=== PATIENT | female | born 1995 | race Caucasian/White ===

== ENCOUNTER → 2017-08-20 | Outpatient (CLI) | payer MEDICAID ==
--- NOTE | 2017-08-20 17:01 | Diagnostic Imaging Report ---
INDICATION: . Dating. TECHNIQUE: Multiple real-time grayscale images were obtained over the gravid uterus. COMPARISON: None. FINDINGS: There is a live single intrauterine with a heart rate of 169 beats per minute. The placenta is anterior. No placenta previa. Amniotic fluid amount appears to be adequate. The cervix is 3.0 cm in length and appears to be closed. The ovaries are obscured by the gravid uterus and the bowel gas. The growth parameters are: Biparietal diameter: 16 weeks and 5 days Head circumference: 16 weeks and 4 days Abdominal circumference: 17 weeks and 1 day Femur length: 16 weeks and 2 days These average at: 16 weeks and 5 days. This corresponds with an VINICIO of 01/30/2018. IMPRESSION: Live single intrauterine . Dictated by: Dictated on workstation # [id number]
== END ==
LOC: RAD 14:36
PROVIDERS: ATTEND Family Medicine
DX: Z34.02 Encounter for supervision of normal first pregnancy, second trimester (principal); Z3A.16 16 weeks gestation of pregnancy
CPT/HCPCS: 76805

== ENCOUNTER → 2017-09-27 | Outpatient (CLI) | payer MEDICAID ==
--- NOTE | 2017-09-27 15:35 | Diagnostic Imaging Report ---
INDICATION: Second trimester . TECHNIQUE: Multiple real-time grayscale images were obtained over the gravid uterus. COMPARISON: 08/20/2017. FINDINGS: There is a single living intrauterine in variable presentation. There is a normal volume of amniotic fluid. Placenta is fundal. There is no previa. Four-chamber heart could not be visualized due to positioning. Remainder of the anatomical survey was unremarkable. Cervical length is 3.8 cm. Heart rate is 142 beats per minute. Biometrical measurements are as follows: Biparietal 5.54 cm, age 23 weeks 0 days. Head circumference 20.58 cm, age 22 weeks 5 days. Abdominal circumference 18.94 cm, age 23 weeks 5 days. Femur length 3.21 cm, age 20 weeks 0 days. Sonographic estimate age: 22 weeks 3 days. Sonographic estimated date of delivery: 01/28/2017. Estimated Weight: 481 gm (+/- 70 gm). LMP percentile: 45%. heart rate: 142 beats per minute. number: 1 of 1. IMPRESSION: Single living intrauterine with a sonographically estimated gestational age of 22 weeks 3 days and estimated date of confinement of January 28, 2018. Four-chamber heart was not well visualized due to position. Dictated by: Dictated on workstation # [id number]
== END ==
LOC: RAD 14:46
PROVIDERS: ATTEND Family Medicine
DX: Z34.92 Encounter for supervision of normal pregnancy, unspecified, second trimester (principal); Z3A.22 22 weeks gestation of pregnancy
CPT/HCPCS: 76805

== ENCOUNTER 2018-02-02 05:42 | Inpatient (IN) | payer MEDICAID ==
[~2018-02-02] VITALS: Ht 157.5 cm; Wt 98.0 kg
[2018-02-02] VITALS (49 sets, daily range): BP systolic 97–127; BP diastolic 55–86
[2018-02-02] MEDS ORDERED: D5 LR IV SOLUTION 1,000 ML IV ONE (06:09)
[2018-02-02] MEDS ORDERED: D5 LR IV SOLUTION 1,000 ML IV SCH (06:12)
[2018-02-02 06:14] LABS: BILIRUBIN,URINE NEGATIVE (NEGATIVE); CLARITY,URINE CLEAR; COLOR,URINE YELLOW; GLUCOSE, URINE (UA) NEGATIVE (NEGATIVE); KETONES,URINE NEGATIVE (NEGATIVE); LEUKOCYTE ESTERASE ,URINE 1+ (NEGATIVE); NITRITE,URINE NEGATIVE (NEGATIVE); PH,URINE 7 (5-9); PROTEIN,URINE NEGATIVE (NEGATIVE); UROBILINOGEN,URINE NORMAL (NORMAL)
[2018-02-02] MEDS ORDERED: MINERAL OIL CONCENTRATE 99.9% 15 ML UDC TOP PRN (06:15)
--- OUTSIDE RECORDS SUMMARY | 2018-02-02 06:18 | XMS REPORT ---
Author KIM Alexander [facility] eClinicalWorks Address Unknown Phone Unavailable Care Team Providers Care Water Main Installer Helper Name Role Phone KIM BOLDEN CP Unavailable Allergies No Known Allergies Problems Problem Type Condition Code Onset Dates Condition Status Assessment Encounter for Depo-Provera contraception Z30.42 Active Problem Unspecified contraceptive management V25.9 Active Medications No Known Medications Procedures Procedure Coding System Code Date DEPO PROVERA (150 MG/ML) CPT-4 J1050 Jun 15, 2015 THER/PROPH/DIAG INJ, SC/IM CPT-4 80763 Jun 15, 2015 URINE TEST CPT-4 93352 Jun 15, 2015 Results No Known Results Summary Purpose eClinicalWorks Submission
--- OUTSIDE RECORDS SUMMARY | 2018-02-02 06:18 | XMS REPORT ---
Author Author VICKI HESTER Organization [facility] Address [address] [place] [address] Care Team Providers Care Curtain Cutter Hand Name Role Phone VICKI HESTER Unavailable PROBLEMS Type Condition ICD9-CM Code [id number] Code Onset Dates Condition Status SNOMED Code Problem Unspecified contraceptive management V25.9 Active 447404845 ALLERGIES Substance Reaction Event Type Date Status N.K.D.A. Unknown Non Drug Allergy Sep, Unknown SOCIAL HISTORY No smoking Hx information available PLAN OF CARE Activity Details Follow Up if not improving or reg follow up Reason: VITAL SIGNS Height 61 in 2016-09-21 Weight 199.2 lbs 2016-09-21 Temperature 97.6 degrees Fahrenheit 2016-09-21 Heart Rate 80 bpm 2016-09-21 Respiratory Rate 18 2016-09-21 BMI 37.63 kg/m2 2016-09-21 Blood pressure systolic 118 mmHg 2016-09-21 Blood pressure diastolic 72 mmHg 2016-09-21 MEDICATIONS Medication Instructions Dosage Frequency Start Date End Date Duration Status Promethazine-Codeine 6.25-10 MG/5ML Orally every 6 hrs prn 5 ml as needed Sep, Active PredniSONE 20 mg Orally Once a day 1 tablet 24h Sep, Sep, 05 days Active Doxycycline Hyclate 100 MG Orally every 12 hrs 1 capsule 12h Sep, Sep, 10 days Active RESULTS No Results PROCEDURES Procedure Date Ordered Related Diagnosis Body Site Office Visit, Est Pt., Level 3 Sep 21, 2016 IMMUNIZATIONS No Known Immunizations
--- OUTSIDE RECORDS SUMMARY | 2018-02-02 06:18 | XMS REPORT | Continuity of Care Document ---
Author Author Formerly [facility] Address Unknown Phone Unavailable Allergies There is no data. Medications There is no data. Problems Date Dx Coded Attending Type Code Diagnosis Diagnosed By 10/14/2014 ORI GARDNER APRNIA R 465.9 UPPER RESPIRATORY INFECTION 10/14/2014 MADL ROLL HAULER, VICKI L 465.9 UPPER RESPIRATORY INFECTION 10/14/2014 ANDREI ROLL HAULER, RADHA R 465.9 UPPER RESPIRATORY INFECTION 10/24/2014 MADL ROLL HAULER, VICKI L 388.70 OTALGIA UNSPECIFIED 10/24/2014 MADL ROLL HAULER, VICKI L 786.2 COUGH 10/24/2014 ANDREI ROLL HAULER, RADHA R 388.70 OTALGIA UNSPECIFIED 10/24/2014 ANDREI ROLL HAULER, RADHA R 786.2 COUGH 10/26/2014 MADL ROLL HAULER, VICKI L V25.9 CONTRACEPTION MANAGEMENT 10/26/2014 ANDREI ROLL HAULER, RADHA R V25.9 CONTRACEPTION MANAGEMENT 11/30/2014 MADL ROLL HAULER, VICKI L 461.9 SINUSITIS ACUTE 11/30/2014 ANDREI ROLL HAULER, RADHA R 461.9 SINUSITIS ACUTE 12/03/2014 ANDREI ROLL HAULER, RADHA R 787.01 NAUSEA WITH VOMITING 09/10/2017 MARY SCHWARTZ MD Ot Z34.02 ENCNTR FOR SUPRVSN OF NORMAL FIRST PREG, 09/10/2017 MARY SCHWARTZ MD Ot Z3A.16 16 WEEKS GESTATION OF 10/01/2017 MARY SCHWARTZ MD Ot Z34.92 ENCNTR FOR SUPRVSN OF NORMAL PREG, UNSP, 10/01/2017 MARY SCHWARTZ MD Ot Z3A.22 22 WEEKS GESTATION OF 10/03/2017 MARY SCHWARTZ MD Ot Z34.92 ENCNTR FOR SUPRVSN OF NORMAL PREG, UNSP, 10/03/2017 MARY SCHWARTZ MD Ot Z3A.22 22 WEEKS GESTATION OF 10/12/2017 MARY SCHWARTZ MD, Ot Z34.92 ENCNTR FOR SUPRVSN OF NORMAL PREG, UNSP, 10/12/2017 MARY SCHWARTZ MD, Ot Z3A.22 22 WEEKS GESTATION OF Procedures Code Description [place] [address] TEST, URINE (IN- HOUSE) 12/03/2014 Results Test Result Range TSH - 08/10/17 10:15 TSH 1.81 mIU/L NRG RUBELLA IMMUNE STATUS - 08/10/17 10:15 RUBELLA ANTIBODY (IGG) 1.24 index NRG CULTURE, URINE - 08/10/17 10:15 CULTURE, URINE, ROUTINE SEE NOTE NRG CULTURE, GENITAL - 08/10/17 10:15 CULTURE, GENITAL SEE NOTE NRG CULTURE, VIRAL (HSV W/TYPING) - 08/10/17 10:26 SOURCE: VAGINAL LESION NRG HSV CULTURE: NOT ISOLATED NRG SUREPATH PAP RFX HPV mRNA E6/E7 - 08/10/17 10:26 CLINICAL INFORMATION: NRG LMP: 05/08/2017 NRG PREV. PAP: NONE NRG PREV. BX: NONE NRG SOURCE: Cervix NRG STATEMENT OF ADEQUACY: NRG INTERPRETATION/RESULT: NRG TRANSMITTER SUPERVISOR: NRG CULTURE, URINE - 09/14/17 15:15 CULTURE, URINE, ROUTINE SEE NOTE NRG CBC - 11/16/17 15:26 WHITE BLOOD CELL COUNT 9.3 Thousand/uL 3.8-10.8 RED BLOOD CELL COUNT 3.82 Million/uL 3.80-5.10 HEMOGLOBIN 10.0 g/dL 11.7-15.5 HEMATOCRIT 31.3 % 35.0-45.0 MCV 81.9 fL 80.0-100.0 MCH 26.2 pg 27.0-33.0 MCHC 31.9 g/dL 32.0-36.0 RDW 14.0 % 11.0-15.0 PLATELET COUNT 334 Thousand/uL 140-400 MPV 9.6 fL 7.5-12.5 ABSOLUTE NEUTROPHILS 7180 cells/uL 4479-3916 ABSOLUTE LYMPHOCYTES 1330 cells/uL 850-3900 ABSOLUTE MONOCYTES 698 cells/uL 200-950 ABSOLUTE EOSINOPHILS 74 cells/uL 15-500 ABSOLUTE BASOPHILS 19 cells/uL 0-200 NEUTROPHILS 77.2 % NRG LYMPHOCYTES 14.3 % NRG MONOCYTES 7.5 % NRG EOSINOPHILS 0.8 % NRG BASOPHILS 0.2 % NRG CULTURE, GROUP B STREP (VAGINAL) - 01/03/18 16:23 STREPTOCOCCUS, GROUP B CULTURE SEE NOTE NRG Encounters ACCT No. Visit Date/Time Discharge Status Pt. Type Provider Facility Loc./Unit Complaint [id number] 12/03/2014 10:41:00 12/03/2014 23:59:59 CLS Outpatient RADHA FORBES APRN [id number] 11/30/2014 09:04:00 11/30/2014 23:59:59 CLS Outpatient VICKI HESTER APRN [id number] 10/14/2014 15:35:00 10/14/2014 23:59:59 CLS Outpatient MANNY GARDNER APRN [id number] 01/24/2018 16:20:00 01/24/2018 23:59:59 CLS Outpatient VICKI HESTER APRN [facility] [id number] 01/03/2018 16:00:00 Document Registration [id number] 11/16/2017 14:20:00 Document Registration [id number] 09/14/2017 14:20:00 Document Registration [id number] 08/10/2017 09:20:00 Document Registration [id number] 09/27/2017 14:46:00 09/27/2017 23:59:59 CLS Outpatient MARY SCHWARTZ MD [facility] SECOND TRIMESTER [id number] 08/20/2017 14:36:00 08/20/2017 23:59:59 CLS Outpatient MARY SCHWARTZ MD [facility] RAD Z34.00 NORMAL PREGANANCY, FIRST [id number] 02/03/2018 19:00:00 PEN Preadmit DONNA FITZGERALD MD INDUCTION
--- OUTSIDE RECORDS SUMMARY | 2018-02-02 06:18 | XMS REPORT ---
Author Author HUBERT CROOKS [facility] eClinicalWorks Address Unknown Phone Unavailable Care Team Providers Care Button Bradder Name Role Phone HUBERT CROOKS CP Unavailable Allergies, Adverse Reactions, Alerts Substance Reaction Event Type N.K.D.A. Info Not Available Non Drug Allergy Problems Problem Type Condition Code Onset Dates Condition Status Assessment Acute nasopharyngitis J00 Active Assessment Acute bacterial sinusitis J01.90 Active Problem Unspecified contraceptive management V25.9 Active Medications Medication Code System Code Instructions Start Date End Date Status Dosage Nasonex [facility] [address]-63 50 MCG/ACT Nasally Once a day Aug 28, 2015 2 sprays in each nostril Claritin [facility] [address]-14 10 MG Orally Once a day Aug 28, 2015 Sep 27, 2015 1 tablet Depo-Provera [facility] [address]-52 150 mg/mL November 30, 2014 inject 150 mg by intramuscular route every 3 months Procedures Procedure Coding System Code Date Office Visit, Est Pt., Level 3 CPT-4 06499 Aug 28, 2015 STREP A ASSAY W/OPTIC CPT-4 17584 Aug 28, 2015 MEASURE BLOOD OXYGEN LEVEL CPT-4 68691 Aug 28, 2015 Vital Signs Date/Time: Aug 28, 2015 Temperature 97.4 F BMIPercentile 95.96 % Weight 171 lbs Height 61 in Oximetry 97 % Blood Pressure Diastolic 78 mmHg Blood Pressure Systolic 102 mmHg Cardiac Monitoring Heart Rate 88 bpm Wt Percentile 92.52 % BMI 32.31 Index Results Name Result Date Reference Range Unit Abnormality Flag STREP A (IN HOUSE) ----STREP A negative [id number] ----Control + [id number] ----Lot # [id number] ----Exp date january [id number] Summary Purpose eClinicalWorks Submission
--- OUTSIDE RECORDS SUMMARY | 2018-02-02 06:18 | XMS REPORT ---
Author KIM Alexander [facility] eClinicalWorks Address Unknown Phone Unavailable Care Team Providers Care Patent Paralegal Name Role Phone KIM BOLDEN CP Unavailable Allergies No Known Allergies Problems Problem Type Condition Code Onset Dates Condition Status Assessment HEP B (PED/ADOL 3-DOSE) DX V05.3 Active Problem Unspecified contraceptive management V25.9 Active Medications No Known Medications Procedures Procedure Coding System Code Date SINGLE IMMUNIZATION ADMIN CPT-4 12590 Jun 02, 2015 HEP B (PED/ADOL, 3 DOSE) CPT-4 05176 Jun 02, 2015 Results No Known Results Immunizations Vaccine Administration Date HEP B (PED/ADOL, 3 DOSE) Jun 02, 2015 Summary Purpose eClinicalWorks Submission
--- OUTSIDE RECORDS SUMMARY | 2018-02-02 06:18 | XMS REPORT ---
Author KIM Alexander [facility] eClinicalWorks Address Unknown Phone Unavailable Care Team Providers Care Senior Php Web Developer Name Role Phone KIM BOLDEN CP Unavailable Allergies No Known Allergies Problems Problem Type Condition Code Onset Dates Condition Status Assessment Encounter for immunization Z23 Active Problem Unspecified contraceptive management V25.9 Active Medications No Known Medications Procedures Procedure Coding System Code Date SINGLE IMMUNIZATION ADMIN CPT-4 77214 Jun 21, 2015 FLUZONE QUAD (3 & UP)-SINGLE DOSE VIAL-SANOFI PASTEUR-2014 CPT-4 37162 Jun 21, 2015 Results No Known Results Immunizations Vaccine Administration Date FLUZONE QUAD (3 & UP)-SINGLE DOSE VIAL-SANOFI PASTEUR-2014Jun 21, 2015 Summary Purpose eClinicalWorks Submission
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
[2018-02-02 06:23] LABS: BACTERIA,URINE MODERATE /HPF
[2018-02-02] MEDS ORDERED: BUTORPHANOL INJ 2 MG/ML (STADOL) VIAL IV ONE (06:30)
[2018-02-02] MEDS ORDERED: BUTORPHANOL INJ 2 MG/ML (STADOL) VIAL ONE (06:32)
[2018-02-02 06:37] LABS: BASOPHILS % (AUTO) 0 % (0-10); EOSINOPHILS # (AUTO) 0.2 10^3/uL (0.0-0.3); EOSINOPHILS % (AUTO) 2 % (0-10); HEMATOCRIT 31 % (35-52); LYMPHOCYTES # (AUTO) 1.5 X 10^3 (1.0-4.0); LYMPHOCYTES % (AUTO) 11 % (12-44); MEAN CORPUSCULAR HEMOGLOBIN 25 PG (25-34); MEAN CORPUSCULAR HGB CONC 32 G/DL (32-36); MEAN CORPUSCULAR VOLUME 76 FL (80-99); MONOCYTES % (AUTO) 8 % (0-12); NEUTROPHILS # (AUTO) 10.3 X 10^3 (1.8-7.8); NEUTROPHILS % (AUTO) 79 % (42-75); PLATELET COUNT 383 10^3/uL (130-400); RED BLOOD COUNT 4.05 10^6/uL (4.35-5.85); RED CELL DISTRIBUTION WIDTH 18.4 % (10.0-14.5)
[2018-02-02] MEDS ORDERED: PREN-142 PO (06:41)
[2018-02-02] MEDS ORDERED: OXYTOCIN/NORMAL SALINE 500 ML IV ONE ×2 (06:55→12:09)
--- NOTE | 2018-02-02 07:55 | History & Physical-OB ---
OB - Chief Complaint & HPI Date/Time Date of Admission: Date of Admission: Feb 02, 2018 at 06:05 Time Seen by Provider: 06:55 Chief Complaint/History OB-Reason for Admission/Chief: Onset of Labor Hx : 1 Hx Para: 0 Expected Date of Delivery: January 30, 2018 Gestational Age in Weeks: 40 Gestational Age in Days: 3 History of Labs A+, Ab neg, Rub Imm, HIV/HepB/RPR NR, GC/chyl neg Allergies and Home Medications Allergies Coded Allergies: No Known Drug Allergies (Unverified , 02/02/18) Home Medications Vit No.124/Iron/FA 1 Each Tablet, 1 EACH PO DAILY, (Reported) Patient Home Medication List Home Medication List Reviewed: Yes OB - History Hx of Present Ultrasounds: Normal mid trimester US Obstetrical Complications: None Medical Complications: None Information Induced Hypertension: No Maternal Gestational Diabetes: No Hemorrhage: No Obstetrical History Hx : 1 Patient Past Medical History obesity Social History/Family History HIV/AIDS: No Recent Infectious Disease Expo: No Recreational Drug Use: No Immunizations Tetanus Booster (TDap): Less than 5yrs (11/29/17) Rubella: immune RPR/VDRL: Negative GBS Status: Negative HBsAG: Negative OB - Admission Exam Physical Exam Vitals: Vital Signs 02/02/18 02/02/18 06:00 06:40 Temp 98.5 Pulse 73 Resp 18 B/P (MAP) 113/66 (82) O2 Delivery Room Air HEENT: NCAT Heart: Rhythm Normal Lungs: Clear Abdomen: Gravid Extremities: Normal Cervical Dilatation: 8cm Effacement: 100% Station: 0 Membranes: Ruptured Amniotic Fluid: Thin Meconium Heart Rate: 140's Decelerations: Early Decelerations Short Term Variability: Present Contractions on Admission: < 5 Minutes Apart Labs Laboratory Tests Test 02/02/18 06:00 02/02/18 06:20 Range/Units Urine Color YELLOW Urine Clarity CLEAR Urine pH 7 5-9 Urine Specific [place] 1.010 L 1.016-1.022 Urine Protein NEGATIVE NEGATIVE Urine Glucose (UA) NEGATIVE NEGATIVE Urine Ketones NEGATIVE NEGATIVE Urine Nitrite NEGATIVE NEGATIVE Urine Bilirubin NEGATIVE NEGATIVE Urine Urobilinogen NORMAL NORMAL MG/DL Urine Leukocyte Esterase 1+ H NEGATIVE Urine RBC (Auto) 3+ H NEGATIVE Urine RBC 5-10 H /HPF Urine WBC 2-5 /HPF Urine Squamous Epithelial Cells 5-10 /HPF Urine Crystals NONE /LPF Urine Bacteria MODERATE H /HPF Urine Casts NONE /LPF Urine Mucus NEGATIVE /LPF Urine Culture Indicated YES White Blood Count 13.0 H 4.3-11.0 10^3/uL Red Blood Count 4.05 L 4.35-5.85 10^6/uL Hemoglobin 10.0 L 11.5-16.0 G/DL Hematocrit 31 L 35-52 % Mean Corpuscular Volume 76 L 80-99 FL Mean Corpuscular Hemoglobin 25 25-34 PG Mean Corpuscular Hemoglobin Concent 32 32-36 G/DL Red Cell Distribution Width 18.4 H 10.0-14.5 % Platelet Count 383 130-400 10^3/uL Mean Platelet Volume 10.0 7.4-10.4 FL Neutrophils (%) (Auto) 79 H 42-75 % Lymphocytes (%) (Auto) 11 L 12-44 % Monocytes (%) (Auto) 8 0-12 % Eosinophils (%) (Auto) 2 0-10 % Basophils (%) (Auto) 0 0-10 % Neutrophils # (Auto) 10.3 H 1.8-7.8 X 10^3 Lymphocytes # (Auto) 1.5 1.0-4.0 X 10^3 Monocytes # (Auto) 1.0 0.0-1.0 X 10^3 Eosinophils # (Auto) 0.2 0.0-0.3 10^3/uL Basophils # (Auto) 0.0 0.0-0.1 10^3/uL OB - Assessment/Plan/Diagnosis Assessment Assessment: active labor Admission Dx Labor 40 week gestation Admission Status: Inpatient Order (span 2 midnights) Reason for Inpatient Admission: Labor Plan Plan: Expectant Management Other Plan 22 yo G1 @ 40.3 wga admitted here for active labor Plan - Expectant management - GBS neg - Desires Epidural - AROM with thin meconium Copy Copies To 1: DONNA FITZGERALD MD, HOLLY R MD Feb 02, 2018 7:55 am
[2018-02-02] MEDS ORDERED: LIDOCAINE/EPI 2% 1:200,00 (XYLOCAINE) 10 ML VIAL ONE (08:37)
[2018-02-02] MEDS ORDERED: SUFENTA 0.6MCG/ML BUPIVA 0.125 100 ML ONE (08:37)
[2018-02-02] MEDS ORDERED: fentaNYL INJECTION 100 MCG/2 ML AMP ONE (09:15)
[2018-02-02] MEDS ORDERED: BUPIVACAINE 0.25% 30 ML (SENSORCAINE) VIAL ONE (09:15)
[2018-02-02] MEDS ORDERED: LACTATED RINGERS 1,000 ML IV SCH (09:32)
[2018-02-02] MEDS ORDERED: EPIDURAL (SUFENTA 0.6MCG/ML BUPIVA 0.125%) 100 ML BAG EPI SCH (09:45)
[2018-02-02] MEDS ORDERED: NALOXONE 0.4 MG/ML 1 ML (NARCAN) VIAL IV PRN ×2 (09:45)
[2018-02-02] MEDS ORDERED: diphenhydrAMINE 50 MG/ML INJ (BENADRYL) IV PRN (09:45)
[2018-02-02] MEDS ORDERED: METOCLOPRAMIDE INJ 10 MG/2 ML (REGLAN) IV PRN (09:45)
[2018-02-02] MEDS ORDERED: ONDANSETRON 4 MG/2 ML (SDV) Z0FRAN IV PRN (09:45)
[2018-02-02] MEDS: OXYTOCIN/NORMAL SALINE 500 ML IV SCH ×2 (11:38→12:10)
[2018-02-02] MEDS ORDERED: WITCH HAZEL(TUCKS) 40 EA JAR TOP PRN (12:15)
[2018-02-02] MEDS ORDERED: MEASLES,MUMPS,RUBELLA 1 EA INJ SQ ONE (12:15)
[2018-02-02] MEDS ORDERED: BENZOCAINE/MENTHOL (DERMOPLAST) 56 ML CAN TP PRN (12:15)
[2018-02-02] MEDS ORDERED: TETANUS,DIPTH,PERTUSS P/F (BOOSTRIX) 0.5 ML VIAL IM ONE (12:15)
--- NOTE | 2018-02-02 12:19 | OB Labor & Delivery Record ---
Vag Delivery Note Vag Delivery Note Date of Delivery: 02/02/18 1136 Preoperative Diagnosis: Cynthia De La Torre is a (22 /Para 1 / 0, Gestational Age (wks)40.3 admitted in active labor Postoperative Diagnosis: Same Surgeon: DONNA FITZGERALD Die Storage Clerk: None Anesthesia: Epidural Delivery Type: Findings: Term male infant, , Periurethral laceration Viable Male , apgars 3/9/9, weight 8#12 Lacerations: Periurethral with extension near urethra Intact placenta with 3 vessel cord. No nuchal cord, body cord or shoulder dystocia Estimated Blood Loss: 150 ml Complications: None Condition: Stable Description of Procedure: The patient is a 22 yo G1 now P1 who presented in active labor dilated to 7. She was admitted and informed consent was obtained. Her labor course was remarkable for thin meconium at AROM. She progressed to complete dilatation and began to push. She was then set up for delivery. The infant's head was delivered atraumatically in the HERB position. The shoulders and remainder of the infant's body were then delivered without difficulty. Upon delivery, the head was held below the level of the perineum and the mouth and nares were bulb suctioned. The cord was doubly clamped and cut and the was handed off to the pediatric staff and Dr Jordan to evaluate patient. required PPV for 45 sec and 7-10 cc of meconium stained fluid was suctioned from infant. An intact placenta with 3-vessel cord delivered via Varsha and there was found to be minimal bleeding.~ Vigorous fundal massage was performed and the fundus was found to be firm. IV oxytocin was given. Examination of the vagina and perineum revealed a periurethral laceration with extension near urethra, repair done with catheter in place, laceration repaired in the usual fashion with 3-0 vicryl suture. Following the repair, sponge, instrument and needle counts were correct. Mom and baby were both in stable condition in the labor suite. Vitals - Labs Vital Signs - I&O Vital Signs Date Time Temp Pulse Resp B/P (MAP) Pulse Ox O2 Delivery O2 Flow Rate FiO2 02/02/18 06:40 73 18 113/66 (82) Room Air 02/02/18 06:00 98.5 75 18 119/78 (92) Room Air Labs Laboratory Tests 02/02/18 06:00: Urine Color YELLOW, Urine Clarity CLEAR, Urine pH 7, Urine Specific [place] 1.010L, Urine Protein NEGATIVE, Urine Glucose (UA) NEGATIVE, Urine Ketones NEGATIVE, Urine Nitrite NEGATIVE, Urine Bilirubin NEGATIVE, Urine Urobilinogen NORMAL, Urine Leukocyte Esterase 1+H, Urine RBC (Auto) 3+H, Urine RBC 5-10H, Urine WBC 2-5, Urine Squamous Epithelial Cells 5-10, Urine Crystals NONE, Urine Bacteria MODERATEH, Urine Casts NONE, Urine Mucus NEGATIVE, Urine Culture Indicated YES 02/02/18 06:20: White Blood Count 13.0H, Red Blood Count 4.05L, Hemoglobin 10.0L, Hematocrit 31L , Mean Corpuscular Volume 76L, Mean Corpuscular Hemoglobin 25, Mean Corpuscular Hemoglobin Concent 32, Red Cell Distribution Width 18.4H, Platelet Count 383, Mean Platelet Volume 10.0, Neutrophils (%) (Auto) 79H, Lymphocytes (%) (Auto) 11L, Monocytes (%) (Auto) 8, Eosinophils (%) (Auto) 2, Basophils (%) (Auto) 0, Neutrophils # (Auto) 10.3H, Lymphocytes # (Auto) 1.5, Monocytes # (Auto) 1.0, Eosinophils # (Auto) 0.2, Basophils # (Auto) 0.0 DONNA FITZGERALD MD Feb 02, 2018 12:19 pm
[2018-02-02] MEDS ORDERED: CATHETER FLUSH 10 ML SYR IV SCH ×2 (14:00)
[2018-02-02] MEDS: IBUPROFEN 600 MG (MOTRIN) TAB PO SCH ×2 (15:38→21:37)
[2018-02-03 02:00] VITALS: BP 102/61
[2018-02-03] MEDS: IBUPROFEN 600 MG (MOTRIN) TAB PO SCH ×4 (03:30→20:55)
[2018-02-03 06:00] VITALS: BP 103/56
[2018-02-03 07:07] LABS: BASOPHILS % (AUTO) 0 % (0-10); EOSINOPHILS # (AUTO) 0.2 10^3/uL (0.0-0.3); EOSINOPHILS % (AUTO) 3 % (0-10); HEMATOCRIT 27 % (35-52); HEMOGLOBIN 8.4 G/DL (11.5-16.0); LYMPHOCYTES # (AUTO) 1.6 X 10^3 (1.0-4.0); LYMPHOCYTES % (AUTO) 18 % (12-44); MEAN CORPUSCULAR HEMOGLOBIN 24 PG (25-34); MEAN CORPUSCULAR HGB CONC 31 G/DL (32-36); MEAN CORPUSCULAR VOLUME 77 FL (80-99); MONOCYTES % (AUTO) 11 % (0-12); NEUTROPHILS # (AUTO) 5.9 X 10^3 (1.8-7.8); NEUTROPHILS % (AUTO) 68 % (42-75); PLATELET COUNT 303 10^3/uL (130-400); RED BLOOD COUNT 3.53 10^6/uL (4.35-5.85); RED CELL DISTRIBUTION WIDTH 18.7 % (10.0-14.5); WHITE BLOOD COUNT 8.6 10^3/uL (4.3-11.0)
[2018-02-03 08:00] VITALS: BP 108/68
[2018-02-03 13:30] VITALS: BP 113/75
[2018-02-03 19:45] VITALS: BP 109/77
--- NOTE | 2018-02-03 22:15 | Progress Note (SOAP) ---
Subjective Subjective/Events-last exam Patient doing well this AM. No BM yet. Tolerating PO diet and ambulation. Breast feeding improving Review of Systems Date Seen by Provider: Feb 03, 2018 Time Seen by Provider: 11:15 Pulmonary: No Dyspnea, No Cough Cardiovascular: No: Chest Pain, Palpitations Gastrointestinal: No: Abdominal Pain Genitourinary: Dysuria Objective Exam Last Set of Vital Signs Vital Signs Date Time Temp Pulse Resp B/P (MAP) Pulse Ox O2 Delivery O2 Flow Rate FiO2 02/03/18 19:45 97.6 87 18 109/77 (88) 99 Room Air 02/02/18 11:17 15.00 Capillary Refill : I&O Intake and Output 02/03/18 00:00 Intake Total 3150 ml Balance 3150 ml Intake Oral 500 ml IV Total 2650 ml Daily Weight Change No General: Alert, Oriented X3, Cooperative, No Acute Distress Lungs: Clear to Auscultation, Normal Air Movement Heart: Regular Rate, No Murmurs Other physical findings No vaginal hematoma present, repair intact Results/Procedures Lab Laboratory Tests 02/03/18 06:37: White Blood Count 8.6, Red Blood Count 3.53L, Hemoglobin 8.4L, Hematocrit 27L, Mean Corpuscular Volume 77L, Mean Corpuscular Hemoglobin 24L, Mean Corpuscular Hemoglobin Concent 31L, Red Cell Distribution Width 18.7H, Platelet Count 303, Mean Platelet Volume 10.0, Neutrophils (%) (Auto) 68, Lymphocytes (%) (Auto) 18 , Monocytes (%) (Auto) 11, Eosinophils (%) (Auto) 3, Basophils (%) (Auto) 0, Neutrophils # (Auto) 5.9, Lymphocytes # (Auto) 1.6, Monocytes # (Auto) 1.0, Eosinophils # (Auto) 0.2, Basophils # (Auto) 0.0 Microbiology 02/02/18 Urine Culture - Final, Complete Sent To [facility] See Comments Assessment/Plan Assessment/Plan Admission Status: Inpatient Order (span 2 midnights) Reason for Inpatient Admission: Labor (1) Normal vaginal delivery Status: Acute Assessment & Plan: - Routine post care - Breast feeding improved (2) Anemia, Status: Acute Assessment & Plan: - Continue PNV with iron (3) Periurethral trauma during delivery Status: Acute Assessment & Plan: - Repair intact Clinical Quality Measures DVT/VTE Risk/Contraindication: Risk Factor Score Per Nursin RFS Level Per Nursing on Admit: 2=Moderate DONNA FITZGERALD MD Feb 03, 2018 10:15 pm
[2018-02-04 02:05] VITALS: BP 97/59
[2018-02-04] MEDS: IBUPROFEN 600 MG (MOTRIN) TAB PO SCH ×3 (02:05→15:43)
[2018-02-04 09:15] VITALS: BP 112/78
[2018-02-04 13:00] VITALS: BP 119/79
--- NOTE | 2018-02-04 13:34 | Discharge Summary ---
Diagnosis/Chief Complaint Date of Admission Feb 02, 2018 at 06:05 Date of Discharge 02/04/2018 Admission Diagnosis Admission Diagnosis Active labor in term Discharge Diagnosis Term Vaginal delivery of male Casi urethral lacerations with repair Post anemia Chief Complaint/HPI Chief Complaint/HPI Presented to L&D in Active labor. Discharge Summary-Simple/Stand Procedures of male infant Discharge Physical Examination Allergies: Coded Allergies: No Known Drug Allergies (Unverified , 02/02/18) Vitals & I&Os Vital Sign - Last 12Hours Date Time Temp Pulse Resp B/P (MAP) Pulse Ox O2 Delivery O2 Flow Rate FiO2 02/04/18 09:15 97.4 88 20 112/78 (89) 100 Room Air 02/02/18 11:17 15.00 General Appearance: Alert, Oriented X3, Cooperative, No Acute Distress HEENT: Mucous Memb Moist/[place] Respiratory: Clear to Auscultation, Normal Air Movement Cardiovascular: Regular Rate, No Murmurs Abdominal: Normal Bowel Sounds, Soft, No Tenderness, Other (Fundus firm below umbilicus) Extremities: No Edema, No Tenderness/Swelling Psych/Mental Status: Mental Status NL, Mood NL Hospital Course See final discharge diagnosis. Discussion & Recommendations 22 yo F G1 now P1 that delivery male infant via . GBS neg, Rub Imm, HepB/HIV/ RPR NR, GC/Chyl neg. Had repair of complicated periurethral tear. Discharge Condition at discharge stable Instructions to patient/family Please see electronic discharge instructions given to patient. Discharge Medications Reviewed and agree with Discharge Medication list on patient's Discharge Instruction sheet Clinical Quality Measures DVT/VTE Risk/Contraindication: Risk Factor Score Per Nursin RFS Level Per Nursing on Admit: 2=Moderate Copy Copies To 1: DONNA FITZGERALD MD, HOLLY R MD Feb 04, 2018 13:34
[2018-02-04] MEDS ORDERED: IBUP-844 PO (13:36)
--- NOTE | 2018-02-04 13:37 | Discharge Instructions ---
Discharge Inst-Women[facility] Serv Depart Medications New, Converted or Re-Newed RX: Transmitted to Pharmacy New Medications: Ibuprofen (Ibu) 600 Mg Tablet 600 MG PO Q6H for 30 Days, #90 TAB Continued Medications: Vit No.124/Iron/FA ( Vitamin Tablet) 1 Each Tablet 1 EACH PO DAILY, TAB Follow Up/Instructions Goal/Follow Up: [address] Dyer Activity Activity: Activity as Tolerated Driving Instructions: You May Drive NO SMOKING: NO SMOKING Nothing Inside Vagina: No Douching, No [place], No Tampons Diet Discharge Diet: No Restrictions Symptoms to Report to : Bleeding Excessive, Fever Over 101 Degrees F, Urination Difficulty, Nausea/Vomiting, Shortness of Breath For Any Problems or Questions: Contact Your Physician Copies To 1: DONNA DYER MD, HOLLY R MD Feb 04, 2018 13:35
== END 2018-02-04 16:00 | disposition home or self-care (01) | DRG 775 ==
LOC: WSo 05:42 → LDRP 05:43 → WSo 06:04 → LDRP 06:05
PROVIDERS: ADMIT Family Medicine; ATTEND Family Medicine
PROC: 10E0XZZ Delivery of Products of Conception, External Approach (ICD-10-PCS; principal; 2018-02-02)
PROC: 0UQMXZZ Repair Vulva, External Approach (ICD-10-PCS; 2018-02-02)
DX: O71.82 Other specified trauma to perineum and vulva (principal); Z37.0 Single live birth; O90.81 Anemia of the puerperium; D64.9 Anemia, unspecified; Z3A.40 40 weeks gestation of pregnancy
CPT/HCPCS: 36415; 81000; 85025; 86850; 86900; 86901; 87088; 99212